=== PATIENT | female | born 1950 | race Caucasian/White ===

== ENCOUNTER 2017-04-11 08:15 | Emergency (ER) | payer MEDICARE, OTHER ==
[2017-04-11] MEDS ORDERED: HYDROcod/ACETAM 5/325 MG TABLET PO STA (08:35)
[2017-04-11] MEDS ORDERED: HYDROcod/ACETAM 5/325 MG TABLET ONE (08:40)
--- NOTE | 2017-04-11 08:40 | ED Physician Documentation ---
PD HPI Fall - Stated complaint Stated Complaint: GLF/CHEST PX - Chief complaint Chief Complaint: General - History obtained from History obtained from: Patient - History of Present Illness Mechanism of injury: Tripped Fall distance: Standing position Where injury occurred: Street Timing - onset: Yesterday Injury(ies) location: Chest Quality of pain: Pain Associated symptoms: No: LOC, Neck pain Worsens with: Movement, Palpation, Other (Respiratory inspiration or cough.) Contributing factors: Anticoagulated (on Warfarin) Similar symptoms before: Has not had sx before - Additional information Additional information: The patient is a 67-year-old female, visiting from [place], who tripped over a planter box in [place] yesterday. She fell, impacting the planter box with her left chest, and presents now with chest wall pain, worse with respiratory inspiration and with coughing. She has a history of recurrent DVTs, and is treated with warfarin. She is also status post partial colectomy, and has history of rheumatoid arthritis. Review of Systems Constitutional: denies: Fever Ears: denies: Tinnitus/ringing Nose: denies: Congestion Throat: denies: Sore throat Cardiac: reports: Chest pain / pressure. denies: Palpitations Respiratory: denies: Dyspnea, Cough GI: denies: Abdominal Pain, Vomiting : denies: Dysuria Skin: reports: Other (Ecchymosis left chest wall.). denies: Rash Musculoskeletal: reports: Back pain (Chronic arthritic pain, with no acute exacerbation.), Extremity pain (Mild pain left knee.). denies: Neck pain Neurologic: denies: Focal weakness, Numbness, Headache, Head injury PD PAST MEDICAL HISTORY - Past Medical History Past Medical History: Yes Cardiovascular: Deep vein thrombosis Neuro: Headache/migraine Musculoskeletal: Rheumatoid arthritis - Past Surgical History Past Surgical History: Yes General: Bowel surgery (Partial colectomy) - Present Medications Home Medications: Ambulatory Orders Medication Instructions Recorded Confirmed HYDROcod/ACETAM 5/325 [Manteo 5/325] 1 - 2 ea PO Q6H PRN #20 tablet 04/11/17 Naproxen Sodium [Aleve] 220 mg PO 04/11/17 Omeprazole 20 mg PO 04/11/17 Warfarin [Coumadin] 5 mg PO 1400 04/11/17 04/11/17 diphenhydrAMINE [Benadryl] 25 mg PO Q4-6H 04/11/17 04/11/17 - Allergies Allergies/Adverse Reactions: Allergies Allergy/AdvReac Type Severity Reaction Status Date / Time indomethacin Allergy Unknown Verified 04/11/17 08:21 phenytoin sodium * Allergy Unknown Verified 04/11/17 08:21 [From Dilantin] phenytoin sodium extended * Allergy Unknown Verified 04/11/17 08:21 [From Dilantin] Sulfa (Sulfonamide Allergy Unknown Verified 04/11/17 08:21 Antibiotics) - Social History Does the pt smoke?: No Smoking Status: Never smoker Additional Social History: Visiting from [place]. Has family living on [facility]. PD ED PE NORMAL - Vitals Vital signs reviewed: Yes (Hypertensive) - General General: Alert and oriented X 3, Well developed/nourished - HEENT HEENT: Atraumatic, EOMI - Neck Neck: No bony TTP, No JVD - Cardiac Cardiac: RRR, No murmur - Respiratory Respiratory: No respiratory distress, Clear bilaterally, Other (Large area of ecchymosis at the left chest wall in the posterior axillary line, with associated tenderness to palpation. Full and equal breath sounds bilaterally.) - Abdomen Abdomen: Soft, Non tender - Back Back: No CVA TTP - Derm Derm: No rash - Extremities Extremities: No edema, No calf tenderness / cord, Other (Superficial abrasion over the infrapatellar aspect of the left knee. She has full range of motion of the knee, with minimal tenderness to palpation. No joint effusion is appreciated.) - Neuro Neuro: Alert and oriented X 3, No motor deficit, No sensory deficit Results - Vitals Vitals: Oxygen O2 Source Room air - Rads (name of study) Left ribs w/PA chest Radiology: Prelim report reviewed, EMP read contemporaneously, See rad report ( Left third and fourth anterior rib fractures.) PD MEDICAL DECISION MAKING - ED course Complexity details: reviewed results, re-evaluated patient, considered differential, d/w patient, d/w family ED course: The patient's presentation is significant for fractures of the left third and fourth anterior ribs, secondary to fall yesterday. There is no evidence of pneumothorax or pulmonary contusion. Treatment in the emergency department included administration of Vicodin 1 tablet orally. She is being discharged with prescription for Vicodin, 20 tablets. I discussed with her and her the expected course of injury, symptomatic treatment and outpatient follow-up, as well as potentially worrisome signs or symptoms that should prompt reevaluation in the emergency department. Departure - Departure Disposition: 01 Home, Self Care Clinical Impression: Rib fractures Qualifiers: Encounter type: initial encounter Rib fracture type: multiple ribs Fracture type: closed Laterality: left Qualified Code(s): S22.42XA - Multiple fractures of ribs, left side, initial encounter for closed fracture Condition: Stable Instructions: ED Fx Rib Prescriptions: HYDROcod/ACETAM 5/325 [Manteo 5/325] 1 - 2 ea PO Q6H PRN #20 tablet PRN Reason: Pain Comments: Apply ice pack to your chest wall intermittently for the next 3 days. You can use Vicodin as prescribed if needed for pain. Let pain be your guide to activity level. Return to the emergency department if you develop increasing difficulty breathing, or otherwise worsening symptoms. Discharge Date/Time: 04/11/17 09:48
--- NOTE | 2017-04-11 09:12 | XRAY Preliminary Report ---
Exam: XR Ribs w/PA Chest LT IMPRESSION: Left third, fourth anterior rib fracture. [facility] SITE ID: [id number]
--- NOTE | 2017-04-11 09:14 | XRAY Report ---
EXAM: LEFT RIB RADIOGRAPHY EXAM DATE: 04/11/2017 08:54 AM. CLINICAL HISTORY: Fall with pain and ecchymosis left chest wall. COMPARISON: None. TECHNIQUE: 1 view of the chest and 2 views of the ribs. FINDINGS: Bones: Left third, fourth anterior rib fracture. Postop repair right humerus Lungs: Scarring or atelectasis adjacent to the left cardiophrenic angle No pneumothorax. No pleural e ffusions. Mediastinum: Heart size normal. Ectatic aorta Other: None. IMPRESSION: Left third, fourth anterior rib fracture. [facility] Referring Provider Line: [phone] SITE ID: [id number]
[2017-04-11 09:47] VITALS: BP 137/64
== END 2017-04-11 09:48 | disposition home or self-care (01) ==
LOC: ED 08:15
DX: S22.42XA Multiple fractures of ribs, left side, initial encounter for closed fracture (principal); W01.0XXA Fall on same level from slipping, tripping and stumbling without subsequent striking against object, initial encounter; Y92.410 Unspecified street and highway as the place of occurrence of the external cause; M06.9 Rheumatoid arthritis, unspecified; Z86.718 Personal history of other venous thrombosis and embolism; Z79.01 Long term (current) use of anticoagulants
CPT/HCPCS: 71101; 99283; 99284; A9270